=== PATIENT | female | born 1955 | race African-American/Black ===

== ENCOUNTER 2017-06-03 12:54 | Day surgery (SDC) | payer OTHER, BC ==
[~2017-06-03] VITALS: Ht 162.6 cm; Wt 83.9 kg
[~2017-06-03 12:54] MED LIST: AZOR 10/20 M1 TABLET PO; HYDROCHLOROTH12.5 M3 PO; HYDROCHLOROTHIA25 MG PO; MICRO-K8 ME1 PO; MICRO-K8 ME2 PO; POTASSIUM CHLO20 ME1 PO; POTASSIUM CHLOR8 ME2 PO
== END 2017-06-03 15:25 | disposition home or self-care (01) ==
LOC: CATH 12:54
DX: Z45.2 Encounter for adjustment and management of vascular access device (principal); I87.8 Other specified disorders of veins; C50.919 Malignant neoplasm of unspecified site of unspecified female breast; I10 Essential (primary) hypertension
CPT/HCPCS: C1751; C1894; J0690; J1644; J2250; J3010; S0020

== ENCOUNTER → 2018-02-28 | Outpatient (CLI) | payer OTHER, BC ==
[~2018-02-28] MED LIST changes: +PROTONIX40 MG PO; +ZANTAC150 MG PO; +ZYPREXA5 MG PO; +[UNRECOGNIZED DRUG - OTHER] PO
== END | disposition home or self-care (01) ==
LOC: AMB 08:28
PROC: 0JPT0WZ Removal of Totally Implantable Vascular Access Device from Trunk Subcutaneous Tissue and Fascia, Open Approach (ICD-10-PCS; principal; 2018-02-28)
DX: Z45.2 Encounter for adjustment and management of vascular access device (principal); I87.8 Other specified disorders of veins; Z92.21 Personal history of antineoplastic chemotherapy